=== PATIENT | female | born 1990 | race Caucasian/White ===

== ENCOUNTER 2021-02-21 16:50 | Day surgery (SDC) | payer OTHER, BC ==
[2021-02-21 17:35] VITALS: BMI 41.8
[2021-02-21] MEDS ORDERED: hydrALAZINE 20 MG/ML VIAL SLOW IVP PRN (17:50)
== END 2021-02-21 17:55 | disposition home or self-care (01) ==
LOC: CSHLD/OP 16:50
PROVIDERS: ATTEND Obstetrics & Gynecology
DX: Z04.3 Encounter for examination and observation following other accident (principal); O99.342 Other mental disorders complicating pregnancy, second trimester; O99.352 Diseases of the nervous system complicating pregnancy, second trimester; F41.9 Anxiety disorder, unspecified; F98.8 Other specified behavioral and emotional disorders with onset usually occurring in childhood and adolescence; F42.9 Obsessive-compulsive disorder, unspecified; G43.909 Migraine, unspecified, not intractable, without status migrainosus; Z86.16 Personal history of COVID-19; Z3A.22 22 weeks gestation of pregnancy; Z79.899 Other long term (current) drug therapy
CPT/HCPCS: 99282

== ENCOUNTER 2021-05-30 06:51 | Inpatient (IN) | payer BC ==
[2021-05-30 07:41] VITALS: BMI 43.0
[2021-05-30] MEDS ORDERED: hydrALAZINE 20 MG/ML VIAL SLOW IVP PRN ×4 (07:52→22:06)
[2021-05-30] MEDS ORDERED: Promethazine HCl 25 MG/ML VIAL IM PRN ×3 (07:52→13:52)
[2021-05-30] MEDS ORDERED: Ondansetron PF 4 MG/2 ML Vial IVP PRN ×4 (07:52→22:06)
[2021-05-30 08:37] LABS: #Monocytes 0.4 10x3/uL (0.0-1.1); #Neutrophils 7.6 10x3/uL (1.5-8.4); %Basophils 0.4 % (0.0-2.0); %Eosinophils 0.3 % (0.0-6.0); %Lymphocytes 11.9 % (18.0-47.0); %Monocytes 4.3 % (0.0-10.0); %Neutrophils 82.7 % (40.0-75.0); Hemoglobin 12.1 g/dL (12.0-15.5); Mean Corpuscular HGB CONC 34.2 g/dL (32.0-36.0); Mean Corpuscular Hemoglobin 29.2 pg (27.0-33.0); Mean Corpuscular Volume 85.5 fl (81.6-98.3); Mean Platelet Volume 12.7 fl (7.4-10.4); Platelet Count 194 10x3/uL (150-450); RBC Distribution Width 13.5 % (11.5-14.5); Red Blood Cell (RBC) Count 4.14 10x6/uL (3.90-5.03); White Blood Cell (WBC) Count 9.2 10x3/uL (3.5-10.5)
[2021-05-30 09:10] LABS: ALT (SGPT) 16 U/L (8-55); AST (SGOT) 19 U/L (5-34); Albumin 3.1 g/dL (3.5-5.0); Alkaline Phosphatase 204 U/L (40-110); Anion Gap 15 mmol/L (10-20); BUN (Urea Nitrogen) 6 mg/dL (7.0-18.7); Bilirubin, Total 0.3 mg/dL (0.2-1.2); Calc. Creatinine Clearance 266 mL/min (70-130); Calcium 8.9 mg/dL (7.8-10.44); Carbon Dioxide 21 mmol/L (22-29); Chloride 107 mmol/L (98-107); Globulin 2.2 g/dL (2.4-3.5); Glucose 92 mg/dL (70-105); Potassium 3.7 mmol/L (3.5-5.1); Protein, Total 5.3 g/dL (6.0-8.3); Sodium 139 mmol/L (136-145)
[2021-05-30 09:42] LABS: Creatinine, Urine 202.26 mg/dL (47-110)
[2021-05-30] MEDS ORDERED: Calcium Gluc 4.6 MEQ/10 ML (100 MG/ML) SLOW IVP PRN (10:14)
[2021-05-30] MEDS ORDERED: HYDROcodone/Acetaminophen 5/325 mg Tablet PO PRN ×4 (10:14→22:06)
[2021-05-30] MEDS ORDERED: Butorphanol Tartrate 1 MG/ML VIAL SLOW IVP PRN (10:14)
[2021-05-30] MEDS ORDERED: Lidocaine 1% (PF) 30 ML VIAL SC PRN (10:14)
[2021-05-30] MEDS ORDERED: Ibuprofen 800 MG TAB PO PRN (10:14)
[2021-05-30] MEDS ORDERED: Lactated Ringer's 1,000 ML IV SCH ×2 (10:15)
[2021-05-30] MEDS ORDERED: Penicillin G Potassium 5 MILL.UNITS in Sodium Chloride 0.9% 100 ML IVPB SCH (10:15)
[2021-05-30] MEDS ORDERED: NS w/ Oxytocin 30 units 500 ML IV SCH ×3 (10:15→23:00)
[2021-05-30] MEDS ORDERED: Penicillin G 2.5 MILL.units 2.5 MILL.UNITS in Premix Bag 1 BAG IVPB SCH (10:15)
[2021-05-30] MEDS ORDERED: Fentanyl 2 mcg/Bup 0.1% Cadd 100 ML ONE (13:28)
[2021-05-30 13:52] LABS: Hep B Surf Ag Non-Reactive S/CO (NonReactive); Syphilis Antibody Nonreactive (Nonreactive); Syphilis Antibody Index 0.03 S/CO (<1.00 Non-Reactive)
[2021-05-30] MEDS ORDERED: ePHEDrine Sulfate 50 MG/10 ML VIAL SLOW IVP PRN (13:52)
[2021-05-30] MEDS ORDERED: Naloxone HCl 0.4 mg/ml Vial IVP PRN ×2 (13:52)
[2021-05-30] MEDS ORDERED: Acetaminophen 325 MG TAB PO PRN (13:52)
[2021-05-30] MEDS ORDERED: diphenhydrAMINE 50 MG/ML VIAL IVP PRN (13:52)
[2021-05-30] MEDS ORDERED: Hydrocerin (Eucerin) Cream 120 gm Jar TOP PRN (13:52)
[2021-05-30] MEDS ORDERED: Lactated Ringer's 500 ML IV PRN (13:52)
[2021-05-30] MEDS ORDERED: Fentanyl 2 mcg/Bupivacaine 0.1% Cassette 100 ML EPIDURAL SCH (14:00)
[2021-05-30] MEDS ORDERED: Communication Order-Pharmacy FS SCH (14:00)
[2021-05-30 14:08] LABS: HBSAg Index 0.16 S/CO (0-0.99)
[2021-05-30] MEDS ORDERED: Labetalol HCl 200 MG TAB PO SCH (15:00)
[2021-05-30 15:33] LABS: SARS-CoV-2 NAA Rapid Test Not Detected (NotDetected)
[2021-05-30] MEDS ORDERED: Bupivacaine/Epinephrine 0.25% 30 ML VIAL ONE (18:00)
[2021-05-30] MEDS ORDERED: Magnesium Sulfate 20 gm/500 ml 20 GM/500 ML BAG ONE (21:28)
[2021-05-30] MEDS ORDERED: Lanolin Ointment 7 GM TUBE TOP PRN (22:06)
[2021-05-30] MEDS ORDERED: Zolpidem Tartrate 5 MG TAB PO PRN (22:06)
[2021-05-30] MEDS ORDERED: Witch Hazel-Glycerin 1 EACH JAR TOP PRN (22:06)
[2021-05-30] MEDS ORDERED: Misoprostol 200 MCG TAB VAG PRN (22:06)
[2021-05-30] MEDS ORDERED: Boostrix 0.5 ML (Tdap) VIAL IM ONE (22:06)
[2021-05-30] MEDS ORDERED: Bisacodyl 10 MG SUPP PR PRN (22:06)
[2021-05-30] MEDS ORDERED: Benzocaine-Menthol 82.5 ML CAN TOP PRN (22:06)
[2021-05-30] MEDS ORDERED: Preparation H Ointment 28 GM TUBE PR PRN (22:06)
[2021-05-30] MEDS ORDERED: diphenhydrAMINE 25 MG CAP PO PRN (22:06)
[2021-05-30] MEDS ORDERED: Milk Of Magnesia 30 ML UDCUP PO PRN (22:06)
[2021-05-30] MEDS ORDERED: Ibuprofen 800 MG TAB PO SCH (22:45)
[2021-05-31 04:52] LABS: Hemoglobin 10.7 g/dL (12.0-15.5); Mean Corpuscular HGB CONC 33.6 g/dL (32.0-36.0); Mean Corpuscular Hemoglobin 29.4 pg (27.0-33.0); Mean Corpuscular Volume 87.4 fl (81.6-98.3); Platelet Count 195 10x3/uL (150-450); RBC Distribution Width 13.7 % (11.5-14.5); Red Blood Cell (RBC) Count 3.64 10x6/uL (3.90-5.03); White Blood Cell (WBC) Count 11.6 10x3/uL (3.5-10.5)
[2021-05-31] MEDS ORDERED: Magnesium Sulfate 20 gm/500 ml 20 GM/500 ML BAG ONE (05:16)
[2021-05-31] MEDS: Ibuprofen 800 MG TAB PO SCH ×3 (07:47→21:59)
[2021-05-31] MEDS: Labetalol HCl 200 MG TAB PO SCH ×3 (07:52→16:21)
[2021-05-31] MEDS ORDERED: Docusate 100 MG CAP PO SCH (09:00)
[2021-05-31] MEDS ORDERED: Prenatal Vitamin 1 TAB PO SCH (09:00)
[2021-05-31] MEDS: Ferrous Sulfate 325 MG TAB PO SCH ×2 (15:19→16:20)
[2021-05-31] MEDS ORDERED: Preparation H Ointment 28 GM TUBE PR PRN (18:45)
[2021-05-31] MEDS ORDERED: Lanolin Ointment 7 GM TUBE TOP PRN (18:45)
[2021-05-31] MEDS ORDERED: Benzocaine-Menthol 82.5 ML CAN TOP PRN (18:45)
[2021-05-31] MEDS ORDERED: Milk Of Magnesia 30 ML UDCUP PO PRN (18:45)
[2021-05-31] MEDS ORDERED: Boostrix 0.5 ML (Tdap) VIAL IM ONE (18:45)
[2021-05-31] MEDS ORDERED: hydrALAZINE 20 MG/ML VIAL SLOW IVP PRN (18:45)
[2021-05-31] MEDS ORDERED: Ondansetron PF 4 MG/2 ML Vial IVP PRN (18:45)
[2021-05-31] MEDS ORDERED: NS w/ Oxytocin 30 units 500 ML IV SCH (18:45)
[2021-05-31] MEDS ORDERED: Misoprostol 200 MCG TAB VAG PRN (18:45)
[2021-05-31] MEDS ORDERED: Zolpidem Tartrate 5 MG TAB PO PRN (18:45)
[2021-05-31] MEDS ORDERED: HYDROcodone/Acetaminophen 5/325 mg Tablet PO PRN ×2 (18:45)
[2021-05-31] MEDS ORDERED: Bisacodyl 10 MG SUPP PR PRN (18:45)
[2021-05-31] MEDS ORDERED: Witch Hazel-Glycerin 1 EACH JAR TOP PRN (18:47)
[2021-05-31] MEDS: Docusate 100 MG CAP PO SCH (21:58)
[2021-06-01 04:46] LABS: Hemoglobin 9.7 g/dL (12.0-15.5); Mean Corpuscular HGB CONC 32.9 g/dL (32.0-36.0); Mean Corpuscular Hemoglobin 29.4 pg (27.0-33.0); Mean Corpuscular Volume 89.4 fl (81.6-98.3); Mean Platelet Volume 12.7 fl (7.4-10.4); Platelet Count 188 10x3/uL (150-450); RBC Distribution Width 14.5 % (11.5-14.5); White Blood Cell (WBC) Count 8.2 10x3/uL (3.5-10.5)
[2021-06-01] MEDS: Ibuprofen 800 MG TAB PO SCH ×2 (05:16→14:16)
[2021-06-01 07:58] VITALS: TEMP 98.3
[2021-06-01] MEDS ORDERED: Ferrous Sulfate 325 MG TAB PO SCH (08:00)
[2021-06-01] MEDS: Docusate 100 MG CAP PO SCH (08:55)
[2021-06-01] MEDS ORDERED: Prenatal Vitamin 1 TAB PO SCH (09:00)
[2021-06-01 11:55] VITALS: BP 135/80
== END 2021-06-01 15:00 | disposition home or self-care (01) | DRG 806 ==
LOC: CSHLD/OP 06:51 → CSHLD 13:30 → CSHPP 05-31 14:45
PROVIDERS: ADMIT Obstetrics & Gynecology; ATTEND Obstetrics & Gynecology
PROC: 10D07Z6 Extraction of Products of Conception, Vacuum, Via Natural or Artificial Opening (ICD-10-PCS; principal; 2021-05-30)
PROC: 3E0334Z Introduction of Serum, Toxoid and Vaccine into Peripheral Vein, Percutaneous Approach (ICD-10-PCS; 2021-05-30)
PROC: 10907ZC Drainage of Amniotic Fluid, Therapeutic from Products of Conception, Via Natural or Artificial Opening (ICD-10-PCS; 2021-05-30)
PROC: 3E033VJ Introduction of Other Hormone into Peripheral Vein, Percutaneous Approach (ICD-10-PCS; 2021-05-30)
DX: O14.14 Severe pre-eclampsia complicating childbirth (principal); O99.354 Diseases of the nervous system complicating childbirth; Z37.0 Single live birth; O26.893 Other specified pregnancy related conditions, third trimester; Z67.31 Type AB blood, Rh negative; Z20.822 Contact with and (suspected) exposure to COVID-19; Z3A.36 36 weeks gestation of pregnancy; F41.9 Anxiety disorder, unspecified; O99.344 Other mental disorders complicating childbirth; O76 Abnormality in fetal heart rate and rhythm complicating labor and delivery; G43.909 Migraine, unspecified, not intractable, without status migrainosus; O60.14X0 Preterm labor third trimester with preterm delivery third trimester, not applicable or unspecified; F42.9 Obsessive-compulsive disorder, unspecified; F98.8 Other specified behavioral and emotional disorders with onset usually occurring in childhood and adolescence; Z86.16 Personal history of COVID-19
CPT/HCPCS: 36415; 36416; 51702; 76819; 80053; 81003; 81015; 82570; 84156; 85025; 85027; 85461; 86780; 86850; 86870; 86900; 86901; 87340; 90384; 96372; 99283; 99285; J0360; J2540; J2590; J3475; J3490; U0002

== ENCOUNTER 2021-06-01 18:31 | Emergency (ER) | payer BC ==
[2021-06-01 19:50] LABS: #Basophils 0.1 10x3/uL (0.0-0.2); #Eosinphils 0.1 10x3/uL (0.0-0.5); #Monocytes 0.4 10x3/uL (0.0-1.1); %Basophils 0.6 % (0.0-2.0); %Eosinophils 1.2 % (0.0-6.0); %Lymphocytes 14.9 % (18.0-47.0); %Monocytes 4.8 % (0.0-10.0); %Neutrophils 78.2 % (40.0-75.0); Hemoglobin 9.7 g/dL (12.0-15.5); Mean Corpuscular HGB CONC 32.9 g/dL (32.0-36.0); Mean Corpuscular Hemoglobin 29.1 pg (27.0-33.0); Mean Corpuscular Volume 88.6 fl (81.6-98.3); Mean Platelet Volume 12.5 fl (7.4-10.4); Platelet Count 209 10x3/uL (150-450); RBC Distribution Width 14.2 % (11.5-14.5); Red Blood Cell (RBC) Count 3.33 10x6/uL (3.90-5.03); White Blood Cell (WBC) Count 8.9 10x3/uL (3.5-10.5)
[2021-06-01 20:02] LABS: ALT (SGPT) 18 U/L (8-55); AST (SGOT) 21 U/L (5-34); Albumin 3.1 g/dL (3.5-5.0); Alkaline Phosphatase 150 U/L (40-110); Anion Gap 14 mmol/L (10-20); BUN (Urea Nitrogen) 9 mg/dL (7.0-18.7); Bilirubin, Total 0.2 mg/dL (0.2-1.2); Calc. Creatinine Clearance 0 mL/min (70-130); Calcium 8.8 mg/dL (7.8-10.44); Carbon Dioxide 21 mmol/L (22-29); Chloride 110 mmol/L (98-107); Globulin 2.7 g/dL (2.4-3.5); Glucose 90 mg/dL (70-105); Potassium 3.6 mmol/L (3.5-5.1); Protein, Total 5.8 g/dL (6.0-8.3); Sodium 141 mmol/L (136-145)
[2021-06-01 20:15] LABS: Bilirubin Neg (Negative); Blood, Urine 250 (Negative); Clarity Clear (Clear); Glucose, Urine (Dipstick) Normal (Negative); Ketone, Urine 15 mg/dL (Negative); Leukocyte 100 (Negative); Nitrite Negative (Negative); Protein, Urine (Dipstick) 30 mg/dl (Neg-Trace); Urobilinogen Normal mg/dL (Less than 2)
[2021-06-01 20:21] LABS: RBC/HPF Greater than 50 HPF (0-3)
[2021-06-01 20:22] LABS: Bacteria/HPF Rare-Few HPF (None Seen)
== END 2021-06-01 21:00 | disposition home or self-care (01) ==
LOC: CSHERS 18:31
DX: O99.345 Other mental disorders complicating the puerperium (principal); F43.0 Acute stress reaction
CPT/HCPCS: 36415; 36416; 80053; 81003; 81015; 82570; 99283